=== PATIENT | male | born 1995 | race Caucasian/White ===

== ENCOUNTER 2016-09-18 01:45 | Emergency (ER) | payer OTHER ==
--- NOTE | 2016-09-18 02:11 | EDPHY ---
H & P Stated Complaint: intoxication Time Seen by Provider: 09/18/16 01:58 HPI/ROS: CHIEF COMPLAINT: Intoxication HISTORY OF PRESENT ILLNESS: The patient is a 21-year-old man whose birthday is tomorrow was brought to the emergency department by his friends for intoxication. He was intoxicated prior to going [place] and then had a lot more to drink there. They are concerned about his somnolence. He is not able to ambulate. He has been vomiting. REVIEW OF SYSTEMS: Unable to obtain secondary to condition EXAM: GENERAL: Intoxicated, covered in vomit, well-nourished HEAD: Atraumatic, normocephalic. EYES: Pupils equal round and reactive to light, extraocular movements intact, sclera anicteric, conjunctiva are normal. ENT: nares patent, Moist mucous membranes. NECK: Normal range of motion, supple without lymphadenopathy or JVD. LUNGS: Breath sounds clear to auscultation bilaterally and equal. No wheezes rales or rhonchi. HEART: Regular rate and rhythm without murmurs, rubs or gallops. ABDOMEN: Soft, nontender, normoactive bowel sounds. No guarding, no rebound. No masses appreciated. BACK: no spinal tenderness, step-offs or deformities EXTREMITIES: Normal range of motion, no pitting or edema. No clubbing or cyanosis. NEUROLOGICAL: Cranial nerves II through XII grossly intact. Slightly slurred speech, unable to ambulate. 5/5 strength, movement in all extremities, normal sensation PSYCH: Arousable with painful stimulation SKIN: Warm, dry, normal turgor, no visible rashes or lesions. Source: Patient, Other Exam Limitations: Intoxication - Personal History Current Tetanus/Diphtheria Vaccine: Unsure Current Tetanus Diphtheria and Acellular Pertussis (TDAP): Unsure - Medical/Surgical History Hx Asthma: No Hx Chronic Respiratory Disease: No Hx Diabetes: No Hx Cardiac Disease: No Hx Renal Disease: No Hx Cirrhosis: No Hx Alcoholism: No Hx HIV/AIDS: No Hx Splenectomy or Spleen Trauma: No - Family History Significant Family History: No pertinent family hx - Social History Smoking Status: Current some day smoker Alcohol Use: Occasionally Drug Use: Marijuana Constitutional: Initial Vital Signs Temperature (C) 35.9 C L 09/18/16 02:02 Heart Rate 80 09/18/16 02:02 Respiratory Rate 14 09/18/16 02:02 Blood Pressure 109/62 09/18/16 02:02 O2 Sat (%) 94 09/18/16 02:02 O2 Delivery Mode Room Air O2 (L/minute) 1 Allergies/Adverse Reactions: Unable to Assess Allergy (Unverified 09/18/16 02:02) Home Medications: Medication Instructions Recorded Albuterol 5 mg/ml INH 09/18/16 Medical Decision Making ED Course/Re-evaluation: 5:15 a.m. the patient is increasingly sober. He is ambulating without difficulty. We will prepare for discharge when his friend can pick him up. Differential Diagnosis: Partial list of the Differential diagnosis considered include but were not limited to; intoxication, polysubstance abuse and although unlikely based on the history and physical exam, I also considered head injury, infection. Departure - Departure Disposition: Home, Routine, Self-Care Clinical Impression: Alcoholic intoxication Qualifiers: Complication of substance-induced condition: uncomplicated Qualified Code(s): F10.920 - Alcohol use, unspecified with intoxication, uncomplicated Condition: Fair Instructions: Alcohol Intoxication (ED) Referrals: [facility],. [Clinic] - As per Instructions
[2016-09-18 04:49] VITALS: BP 124/72
[2016-09-18 06:08] VITALS: PULSE 100; RESP 16; TEMP 96.8; O2SAT 95
== END 2016-09-18 06:06 | disposition home or self-care (01) ==
DX: F10.120 Alcohol abuse with intoxication, uncomplicated (principal); F17.200 Nicotine dependence, unspecified, uncomplicated